=== PATIENT | female | born 1955 | race Caucasian/White ===

== ENCOUNTER 2024-10-31 11:55 | Outpatient (CLI) | payer OTHER, SELFPAY ==
--- NOTE | 2024-10-31 13:04 | P.ANES_ITS ---
Anesthesia Charges Start Date/Time Anesthesia Start Date: 10/31/24 Anesthesia Start Time: 12:39 Stop Date/Time Anesthesia Stop Date: 10/31/24 Anesthesia Stop Time: 13:03 Coding CPT Codes CPT Codes: MICHAELLE LWR INTST SCR COLSC - [id number] ([id number]) P2 - PATIENT W/MILD SYST DISEASE, QK - SOLDERING INSPECTOR 2-4 CNCRNT ANES PROC, QX - COLLEGE SPORTS ASSISTANT SVC W/ MD MED DIRECTION
--- NOTE | 2024-10-31 13:04 | W.ANESCHARGE ---
Anesthesia Charges Start Date/Time Anesthesia Start Date: 10/31/24 Anesthesia Start Time: 12:39 Stop Date/Time Anesthesia Stop Date: 10/31/24 Anesthesia Stop Time: 13:03 Coding CPT Codes CPT Codes: MICHAELLE LWR INTST SCR COLSC - [id number] ([id number]) P2 - PATIENT W/MILD SYST DISEASE, QK - CLIENT SERVICES VICE PRESIDENT 2-4 CNCRNT ANES PROC, QX - PUBLIC ADMINISTRATION TEACHER SVC W/ MD MED DIRECTION
--- NOTE | 2024-10-31 13:58 | P.ANES_ITS ---
Anesthesia Charges Start Date/Time Anesthesia Start Date: 10/31/24 Anesthesia Start Time: 12:39 Stop Date/Time Anesthesia Stop Date: 10/31/24 Anesthesia Stop Time: 13:03 Coding CPT Codes CPT Codes: MICHAELLE LWR INTST SCR COLSC - [id number] ([id number]) QK - BLOCKER AND SEWER 2-4 CNCRNT MICHAELLE PROC, QX - BLANKET WINDER HELPER SVC W/ MD MED DIRECTION, P2 - PATIENT W/MILD SYST DISEASE
--- NOTE | 2024-10-31 13:58 | W.ANESCHARGE ---
Anesthesia Charges Start Date/Time Anesthesia Start Date: 10/31/24 Anesthesia Start Time: 12:39 Stop Date/Time Anesthesia Stop Date: 10/31/24 Anesthesia Stop Time: 13:03 Coding CPT Codes CPT Codes: MICHAELLE LWR INTST SCR COLSC - [id number] ([id number]) QK - ASSEMBLER MOVEMENT 2-4 CNCRNT MICHAELLE PROC, QX - RETOUCHING OPERATOR SVC W/ MD MED DIRECTION, P2 - PATIENT W/MILD SYST DISEASE
== END 2024-10-31 11:56 | disposition home or self-care (01) ==
PROVIDERS: PCP Family Medicine; Visit Provider Internal Medicine Gastroenterology
DX: Z12.11 Encounter for screening for malignant neoplasm of colon (principal); K57.30 Diverticulosis of large intestine without perforation or abscess without bleeding
CPT/HCPCS: 00812; 45378; J2704